=== PATIENT | female | born 1960 | race African-American/Black ===

== ENCOUNTER 2017-05-10 16:14 | Emergency (ER) | payer BC, MEDICAID ==
[~2017-05-10] VITALS: Ht 165.1 cm; Wt 59.0 kg
[2017-05-10] MEDS ORDERED: KETOROLAC 30MG/ML VIAL IV STA (19:48)
[2017-05-10] MEDS ORDERED: TETANUS, DIPHTHERIA, PERTUSSIS VAC/PF 0.5ML (>7YR OLD) IM ONE (20:00)
[2017-05-10] MEDS ORDERED: LIDOCAINE HCL 1%/EPI 1:200,000 30 ML VIAL MC ONE (20:00)
[2017-05-10 20:12] LABS: CLARITY URINE CLEAR (CLEAR); COLOR URINE YELLOW (YELLOW); GLUCOSE URINE NEGATIVE (NEGATIVE); KETONES URINE NEGATIVE (NEGATIVE); LEUKOCYTE ESTERASE URINE NEGATIVE (NEGATIVE); NITRITE URINE NEGATIVE (NEGATIVE); OCCULT BLOOD URINE NEGATIVE (NEGATIVE); PROTEIN URINE NEGATIVE (NEGATIVE); SPECIFIC GRAVITY URINE 1.008 (1.005-1.030); UROBILINOGEN URINE 0.2 E.U./dL (0.2-1.0)
[2017-05-10 20:12] LABS: BASOPHILS % 0.8 % (0.0-2.0); EOSINOPHILS % 1.8 % (0.0-5.0); HEMATOCRIT. 39.2 % (36.0-48.0); HEMOGLOBIN. 13.3 g/dL (12.0-16.0); LYMPHOCYTES % 40.4 % (20.0-50.0); MEAN CORPUSCULAR HEMOGLOBIN 32.8 pg (28.0-32.0); MEAN CORPUSCULAR VOLUME 96.6 fL (81.0-99.0); MEAN PLATELET VOLUME 8.9 fl (7.4-10.4); MONOCYTES % 8.4 % (2.0-8.0); NEUTROPHILS % 48.6 % (40.0-76.0); PLATELET 171 x1000/uL (130-400); RED BLOOD CELL COUNT 4.06 mill/uL (4.2-5.4); RED CELL DISTRIBUTION WIDTH 13.8 % (11.6-14.6)
[2017-05-10 20:16] LABS: PROTHROMBIN TIME 10.2 sec (9.4-11.6)
[2017-05-10 20:29] LABS: *AMPHETAMINES SCREEN URINE NEGATIVE (NEGATIVE); *BARBITURATES SCREEN URINE NEGATIVE (NEGATIVE); *BENZODIAZEPINES SCREEN URINE NEGATIVE (NEGATIVE); *COCAINE SCREEN URINE NEGATIVE (NEGATIVE); CANNABINOID URINE SCREEN NEGATIVE (NEGATIVE); METHADONE URINE SCREEN NEGATIVE (NEGATIVE); OPIATES URINE SCREEN NEGATIVE (NEGATIVE); PHENCYCLIDINE URINE SCREEN PRESUMTIVE POSITIVE (NEGATIVE)
[2017-05-10 21:07] LABS: CARBON DIOXIDE 29 mEq/L (21-32); CHLORIDE 103 mEq/L (98-107)
[2017-05-10 22:55] VITALS: BP 105/62
== END 2017-05-10 23:04 | disposition home or self-care (01) ==
LOC: ER 16:54
DX: S06.9X9A Unspecified intracranial injury with loss of consciousness of unspecified duration, initial encounter (principal); S01.01XA Laceration without foreign body of scalp, initial encounter; F16.10 Hallucinogen abuse, uncomplicated; Y04.2XXA Assault by strike against or bumped into by another person, initial encounter; Y93.9 Activity, unspecified; Y92.410 Unspecified street and highway as the place of occurrence of the external cause; Z59.0 Homelessness; Z23 Encounter for immunization; G40.909 Epilepsy, unspecified, not intractable, without status epilepticus; F99 Mental disorder, not otherwise specified
CPT/HCPCS: 12001; 36415; 70450; 80048; 80305; 81003; 85025; 85610; 90471; 90715; 99285; G0482; J1885; X7700; Z7610

== ENCOUNTER 2022-10-09 12:35 | Inpatient (IN) | payer BC, MEDICAID ==
[~2022-10-09] VITALS: Ht 162.6 cm; Wt 101.6 kg
[2022-10-09] MEDS ORDERED: SODIUM CHLORIDE 0.9% 1,000 ML IV ONE ×2 (13:00→14:15)
[2022-10-09 13:16] LABS: BG BASE EXCESS -10.9 mmol/L (-2.0-2.0); BG CARBOXYHEMOGLOBIN 0.8 % (0.5-1.5); BG DEOXYHEMOGLOBIN 3.2 % (0.0-5.0); BG HCO3 ACT 16.5 mmol/L (22.0-26.0); BG METHEMOGLOBIN 0.3 % (0.0-1.5); BG OXYGEN SATURATION 96.8 % (92.0-98.5); BG OXYHEMOGLOBIN 95.7 % (94.0-97.0); BG PCO2 42.3 mmHg (35.0-45.0); BG PH 7.209 (7.350-7.450); BG PO2 101.5 mmHg (75.0-100.0); BG SAMPLE SITE RIGHT RADIAL; BG TOTAL HEMOGLOBIN 14.7 g/dL (12.0-18.0); BG VENT MODE ROOM AIR
[2022-10-09 13:47] LABS: BASOPHILS % 0.2 % (0.0-2.0); HEMATOCRIT. 44.1 % (36.0-48.0); HEMOGLOBIN. 14.3 g/dL (12.0-16.0); LYMPHOCYTES % 8.2 % (20.0-50.0); MEAN CORPUSCULAR HEMOGLOBIN 31.4 pg (28.0-32.0); MEAN CORPUSCULAR VOLUME 97.1 fL (81.0-99.0); MONOCYTES % 4.9 % (2.0-8.0); NEUTROPHILS % 86.7 % (40.0-76.0); PLATELET 175 x1000/uL (130-400); RED BLOOD CELL COUNT 4.54 mill/uL (4.2-5.4); RED CELL DISTRIBUTION WIDTH 14.8 % (11.6-14.6)
[2022-10-09 13:54] LABS: CHLORIDE 110 mEq/L (98-107)
[2022-10-09 14:03] LABS: ETHANOL BLOOD < 10 mg/dL
[2022-10-09] MEDS ORDERED: LORAZEPAM 2MG/ML CPJ IV ONE (15:30)
[2022-10-09 18:15] VITALS: BP 102/72
[2022-10-09] MEDS: SODIUM CHLORIDE 0.45% 1,000 ML IV SCH (19:00)
[2022-10-09 19:45] VITALS: BP 92/62
[2022-10-09 20:00] VITALS: BP 92/62
[2022-10-09 20:56] LABS: CLARITY URINE CLEAR (CLEAR); COLOR URINE YELLOW (YELLOW); KETONES URINE 1+ (NEGATIVE); LEUKOCYTE ESTERASE URINE NEGATIVE (NEGATIVE); NITRITE URINE NEGATIVE (NEGATIVE); OCCULT BLOOD URINE 2+ (NEGATIVE); PROTEIN URINE 1+ (NEGATIVE); SPECIFIC GRAVITY URINE 1.017 (1.005-1.030)
[2022-10-09 21:17] LABS: *AMPHETAMINES SCREEN URINE NEGATIVE (NEGATIVE); *BARBITURATES SCREEN URINE NEGATIVE (NEGATIVE); *BENZODIAZEPINES SCREEN URINE NEGATIVE (NEGATIVE); *COCAINE SCREEN URINE NEGATIVE (NEGATIVE); CANNABINOID URINE SCREEN NEGATIVE (NEGATIVE); METHADONE URINE SCREEN NEGATIVE (NEGATIVE); OPIATES URINE SCREEN NEGATIVE (NEGATIVE); PHENCYCLIDINE URINE SCREEN PRESUMTIVE POSITIVE (NEGATIVE)
[2022-10-10] VITALS (7 sets, daily range): BP systolic 96–109; BP diastolic 54–76
[2022-10-10 06:09] LABS: CHLORIDE 114 mEq/L (98-107)
[2022-10-10 06:35] LABS: BASOPHILS % 0.1 % (0.0-2.0); EOSINOPHILS % 0.1 % (0.0-5.0); HEMATOCRIT. 42.7 % (36.0-48.0); HEMOGLOBIN. 14.3 g/dL (12.0-16.0); LYMPHOCYTES % 13.9 % (20.0-50.0); MEAN CORPUSCULAR HEMOGLOBIN 31.8 pg (28.0-32.0); MEAN CORPUSCULAR VOLUME 95.2 fL (81.0-99.0); MEAN PLATELET VOLUME 9.1 fl (7.4-10.4); MONOCYTES % 14.1 % (2.0-8.0); NEUTROPHILS % 71.8 % (40.0-76.0); PLATELET 154 x1000/uL (130-400); RED BLOOD CELL COUNT 4.49 mill/uL (4.2-5.4); RED CELL DISTRIBUTION WIDTH 14.5 % (11.6-14.6)
[2022-10-10] MEDS: SODIUM CHLORIDE 0.45% 1,000 ML IV SCH ×2 (08:03→21:06)
[2022-10-10] MEDS ORDERED: GABA800T MT (16:57)
[2022-10-10] MEDS ORDERED: LURA40TA2 MT (16:57)
[2022-10-10] MEDS ORDERED: TRAZ-251 MT (16:57)
[2022-10-11] VITALS: BP 121/69
[2022-10-11 04:00] VITALS: BP 103/68
[2022-10-11 08:00] VITALS: BP 109/72
[2022-10-11] MEDS: QUETIAPINE FUMARATE 50MG TABLET PO SCH ×2 (09:40→21:50)
[2022-10-11] MEDS: SODIUM CHLORIDE 0.45% 1,000 ML IV SCH (09:41)
[2022-10-11 12:00] VITALS: BP 105/68
[2022-10-11 16:00] VITALS: BP 117/78
[2022-10-11 20:00] VITALS: BP 112/81
[2022-10-12] VITALS: BP 107/61
[2022-10-12 04:00] VITALS: BP 130/91
[2022-10-12 08:00] VITALS: BP 123/70
[2022-10-12] MEDS: QUETIAPINE FUMARATE 50MG TABLET PO SCH (08:47)
[2022-10-12] MEDS: RISPERIDONE 1MG TABLET PO SCH ×2 (09:38→21:43)
[2022-10-12] MEDS: SODIUM CHLORIDE 0.45% 1,000 ML IV SCH (15:48)
[2022-10-12 20:00] VITALS: BP 107/72
[2022-10-13] VITALS: BP 101/38
[2022-10-13] MEDS: SODIUM CHLORIDE 0.45% 1,000 ML IV SCH ×2 (02:00→15:20)
[2022-10-13 08:00] VITALS: BP 119/81
[2022-10-13] MEDS: RISPERIDONE 1MG TABLET PO SCH ×2 (10:45→20:54)
[2022-10-13 12:00] VITALS: BP 102/58
[2022-10-13 16:00] VITALS: BP 124/84
[2022-10-13 20:00] VITALS: BP 116/74
[2022-10-14] VITALS: BP 107/78
[2022-10-14 04:00] VITALS: BP 108/84
[2022-10-14] MEDS: SODIUM CHLORIDE 0.45% 1,000 ML IV SCH (04:40)
[2022-10-14 08:00] VITALS: BP 104/70
[2022-10-14] MEDS: RISPERIDONE 1MG TABLET PO SCH (08:43)
[2022-10-14 12:00] VITALS: BP 114/77
[2022-10-14] MEDS ORDERED: SERTRALINE HCL 25MG TABLET PO SCH (12:15)
[2022-10-14 13:32] VITALS: BP 104/70
[2022-10-16] MEDS ORDERED: LURA40TA2 MT (10:36)
[2022-10-16] MEDS ORDERED: TRAZ-251 MT (10:36)
[2022-10-16] MEDS ORDERED: GABA800T97 MT (10:36)
== END 2022-10-14 15:46 | disposition home health service (06) | DRG 52 ==
LOC: ER 12:35 → 7EST 15:24 → EDBEDREQTM 15:30 → EDBEDREQ 15:30 → ENRESERV 16:05 → 6EST 10-12 11:00
PROVIDERS: ADMIT Internal Medicine; ATTEND Internal Medicine
DX: G92.8 Other toxic encephalopathy (principal); E66.9 Obesity, unspecified; G40.909 Epilepsy, unspecified, not intractable, without status epilepticus; T40.905A Adverse effect of unspecified psychodysleptics [hallucinogens], initial encounter; F16.90 Hallucinogen use, unspecified, uncomplicated; F31.9 Bipolar disorder, unspecified; F20.9 Schizophrenia, unspecified; Z68.38 Body mass index [BMI] 38.0-38.9, adult; Y92.89 Other specified places as the place of occurrence of the external cause
CPT/HCPCS: 36415; 36600; 70551; 71045; 80048; 80053; 80305; 80320; 81003; 82140; 82375; 82805; 82962; 83036; 84484; 85025; 93005; 93970; 97162; 97166; 97535; 99285; J2060; J7030; A4315; G0480